=== PATIENT | female | born 1965 | race Caucasian/White ===

== ENCOUNTER 2020-11-09 15:36 | Outpatient (CLI) | payer OTHER ==
[2020-11-10 01:24] LABS: SARS-CoV-2 PCR by NAA Not Detected (NotDetected)
== END 2020-11-09 15:37 | disposition home or self-care (01) ==
LOC: CSHLAB 15:36
PROVIDERS: ATTEND Internal Medicine Gastroenterology
DX: Z20.822 Contact with and (suspected) exposure to COVID-19 (principal); K63.5 Polyp of colon
CPT/HCPCS: 87635; U0003; U0005

== ENCOUNTER 2020-11-12 06:24 | Day surgery (SDC) | payer OTHER ==
[2020-11-08 13:54] VITALS: BMI 34.0
[2020-11-12] MEDS ORDERED: Lidocaine 1% MPF 2 ML VIAL ONE ×2 (06:33→07:31)
[2020-11-12] MEDS ORDERED: PROPOFOL 60 ML ONE (08:41)
== END 2020-11-12 10:05 | disposition home or self-care (01) ==
LOC: CSHSDC 06:24
PROVIDERS: ATTEND Internal Medicine Gastroenterology
PROC: 0DJD8ZZ Inspection of Lower Intestinal Tract, Via Natural or Artificial Opening Endoscopic (ICD-10-PCS; principal; 2020-11-12)
DX: Z12.11 Encounter for screening for malignant neoplasm of colon (principal); K64.9 Unspecified hemorrhoids; K57.30 Diverticulosis of large intestine without perforation or abscess without bleeding; Z86.010 Personal history of colon polyps; Z86.79 Personal history of other diseases of the circulatory system; G47.9 Sleep disorder, unspecified; E03.9 Hypothyroidism, unspecified; Z88.2 Allergy status to sulfonamides; Z88.1 Allergy status to other antibiotic agents; Z79.899 Other long term (current) drug therapy
CPT/HCPCS: J2704